=== PATIENT | female | born 1960 | race Caucasian/White ===

== ENCOUNTER → 2017-03-06 | Outpatient (CLI) | payer OTHER ==
[2017-03-06 18:51] LABS: INR 0.91
[2017-03-06 19:45] LABS: ALBUMIN 4.1 GM/DL (3.2-5.2); ALBUMIN/GLOBULIN RATIO 1.28 (1.00-1.93); ALKALINE PHOSPHATASE 237 U/L (45-117); ALT/SGPT 60 U/L (12-78); AST/SGOT 41 U/L (15-37); BILIRUBIN,DIRECT < 0.1 MG/DL (0.0-0.2); BILIRUBIN,TOTAL 0.3 MG/DL (0.2-1.0); GAMMA GLUTAMYLTRANSPEPTIDASE 258 U/L (5-55); TOTAL IRON BINDING CAPACITY 365 UG/DL (250-450); TOTAL PROTEIN 7.3 GM/DL (6.4-8.2)
[2017-03-12 00:06] LABS: SJOGREN'S ANTI SS-A <0.2 AI (0.0-0.9); SJOGREN'S ANTI SS-B <0.2 AI (0.0-0.9)
== END ==
LOC: M LAB 17:14
PROVIDERS: ATTEND Internal Medicine Gastroenterology
DX: R74.8 Abnormal levels of other serum enzymes (principal)

== ENCOUNTER → 2017-03-11 | Outpatient (CLI) | payer OTHER ==
--- NOTE | 2017-03-12 03:54 | REP ---
Clinical: Abnormal liver function tests. Technique: Lawson scale ultrasound using curved array transducer. Findings: The liver and pancreas are normal in contour, size, and echogenicity without focal hepatic or pancreatic lesions identified. The gallbladder demonstrates two mobile gallstones up to 13 mm without wall thickening or pericholecystic fluid. No biliary ductal dilatation is appreciated, and the common bile duct measures 3.3 mm diameter. The right kidney is normal in reniform shape without hydronephrosis and measures 9.2 x 5.4 x 2.6 cm. No ascites. Visualized portions of the abdominal aorta normal. Impression: Cholelithiasis without sonographic evidence for acute cholecystitis. Otherwise normal right upper quadrant abdominal ultrasound. Signed by Steven Mackenzie MD 03/12/2017 03:45 A
== END ==
LOC: M RAD 08:03
PROVIDERS: ATTEND Internal Medicine Gastroenterology
DX: R74.8 Abnormal levels of other serum enzymes (principal); K80.80 Other cholelithiasis without obstruction

== ENCOUNTER → 2017-05-23 | Outpatient (CLI) | payer OTHER ==
[~2017-05-23] MED LIST: TRAM50TA2 PO
--- NOTE | 2017-05-23 10:17 | REP ---
MAXILLOFACIAL CT WITHOUT CONTRAST: HISTORY: Chronic maxillary sinusitis. The right maxillary sinus is hypoplastic. Mucosal thickening is present in the right maxillary sinus. There is almost complete opacification of the right maxillary sinus. The perez of the maxillary sinus are thickened and sclerotic consistent with chronic sinusitis. The remaining sinuses are clear. Mucosal thickening involves the right osteomeatal unit. The left osteomeatal unit is patent. The middle and inferior nasal turbinates are partially paradoxical. There is minimal deviation of the nasal septum to the left. A small spur is present arising from the left side of the nasal septum. The cribriform plate, medial perez of the orbits and optic canals are intact. The carotid canals form a segment of the posterolateral perez of the sphenoid sinus. IMPRESSION: Sinus mucosal thickening as described above. Signed by Landen Hendrickson MD 05/23/2017 10:26 A
== END ==
LOC: M RAD 09:40
PROVIDERS: ATTEND Otolaryngology
DX: J32.0 Chronic maxillary sinusitis (principal)

== ENCOUNTER → 2017-05-30 | Outpatient (REF) | payer OTHER | LOC: M LAB REF 13:21 | PROVIDERS: ATTEND Otolaryngology | DX: J32.0 Chronic maxillary sinusitis (principal) ==

== ENCOUNTER 2017-06-27 08:21 | Day surgery (SDC) | payer OTHER ==
[~2017-06-27] VITALS: Ht 154.9 cm; Wt 49.4 kg
[~2017-06-27 08:21] MED LIST changes: +LR 1,000 ML IV ONE
[2017-06-27] MEDS ORDERED: ONDANSETRON 4MG/2ML VIAL (J2405) As Ordered ONE (08:31)
[2017-06-27] MEDS ORDERED: LIDOCAINE 2% INJ 100 MG/5 ML SDV (FOR ANES.) As Ordered ONE (08:31)
[2017-06-27] MEDS ORDERED: PROPOFOL 200 MG/20 ML VIAL As Ordered ONE (08:31)
[2017-06-27] MEDS ORDERED: dexameTHASONE 4 MG/ML 1ML VIAL (J1100) As Ordered ONE (08:31)
[2017-06-27] MEDS ORDERED: ROCURONIUM BROMIDE 50 MG/5 ML VIAL/SYRINGE As Ordered ONE (08:31)
[2017-06-27] MEDS ORDERED: fentaNYL 250 MCG/5 ML INJECTION (J3010) As Ordered ONE (08:32)
[2017-06-27] MEDS ORDERED: MIDAZOLAM INJ 2 MG/2 ML VIAL (J2250) As Ordered ONE (08:42)
[2017-06-27] MEDS ORDERED: EPINEPHrine 1MG/ML INJ 30ML MD-VIAL As Ordered ONE (10:36)
[2017-06-27] MEDS ORDERED: LIDOCAINE W/EPINEPHRINE 1% 20ML VIAL As Ordered ONE (10:36)
[2017-06-27] MEDS ORDERED: METHYLENE BLUE 0.5% (5MG/ML) 10 ML AMP (PROVAYBLUE)(Q9968 PER 1MG) As Ordered ONE (10:37)
[2017-06-27] MEDS ORDERED: OXYMETAZOLINE NASAL SPRAY (AFRIN) As Ordered ONE (10:47)
[2017-06-27] MEDS ORDERED: ePHEDrine SULFATE 25 MG/5 ML(5MG/ML) SYRINGE As Ordered ONE (11:15)
[2017-06-27] MEDS ORDERED: GLYCOPYRROLATE INJ 0.2 MG/ML 2 ML VIAL As Ordered ONE (11:25)
[2017-06-27] MEDS ORDERED: NEOSTIGMINE 10 MG/10 ML VIAL (J2710) As Ordered ONE (11:25)
[2017-06-27] MEDS ORDERED: HYDROmorphone HCL 2 MG/ML 1ML VIAL (J1170) As Ordered ONE (11:42)
[2017-06-27] MEDS ORDERED: ONDANSETRON 4MG/2ML VIAL (J2405) IV PRN (13:00)
[2017-06-27] MEDS ORDERED: fentaNYL 100 MCG/2 ML INJECTION (J3010) IV PRN (13:00)
[2017-06-27] MEDS ORDERED: PERCOCET 5MG/325MG TAB PO PRN (13:00)
[2017-06-27] MEDS ORDERED: HYDROmorphone HCL 1 MG/ML SYRINGE (J1170) IV PRN (13:00)
[2017-06-27] MEDS ORDERED: LR 1,000 ML IV SCH (13:00)
[2017-06-27 13:45] VITALS: BP 137/65
--- NOTE | 2017-06-27 21:10 | RO ---
DATE OF PROCEDURE: 06/27/2017 PREPROCEDURE DIAGNOSES: Chronic right maxillary sinusitis recalcitrant to medical therapy with previous history of Adair Giacomo many years ago and right sided sinus surgery with recurrent pain and pressure on the right side, again, unresponsive to medications. POSTPROCEDURE DIAGNOSES: Chronic right maxillary sinusitis recalcitrant to medical therapy with previous history of Adair Giacomo many years ago and right sided sinus surgery with recurrent pain and pressure on the right side, again, unresponsive to medications. OPERATIVE PROCEDURE: Endoscopic maxillary sinusotomy with a balloon [employer] device as well as copious irrigation and partial uncinectomy. SURGEON: Yuan Mitchell Jr, MD [employer] TECHNICAL OFFICER: ANESTHESIA: General via endotracheal tube DESCRIPTION OF PROCEDURE: After the patient had been counseling in the preoperative area, discussions were performed and again reiteration of the risks, benefits, pros and cons, limitations were discussed with the patient. The patient was brought into the operating room, induced and intubated by the anesthesiologist. The films were available and the national sales representative for [employer] was also available. Attention then was drawn to decongesting the nasal cavity with topical Afrin and then also injecting the base of the inferior turbinate with 25-gauge needle. Also the septum was injected on the right side. There was some septal deviation to the left, but this was not consequential and did not at this point seem to be significantly problematic for the patient. At this point, the middle turbinate was medialized and the right inferior turbinate was lateralized, then had some meatal opening. Maxillary seeker was used to identify the natural ostium. Utilizing the [employer] spin device the Sana catheter was used to cannulate the right maxillary sinus and the balloon was deployed to 10 mL and then the Sana device was retracted and 120 mL was utilized to irrigate out the right maxillary sinus. There was material compatible with peanut butterish type consistency that was irrigated out. Cultures were obtained, aerobic, anaerobic and fungal. Another 120 mL was used to suction this out. 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 The patient tolerated the procedure well. There were no problems. No complications. Estimated blood loss was approximately 15 to 20 mL. At this point, nasal port packing was trimmed and placed in the middle meatus to help with hemostasis and the patient tolerated the procedure well. The patient was taken back to the recovery room in satisfactory condition.
== END 2017-06-27 13:46 | disposition home or self-care (01) ==
LOC: M SDC 08:21
PROVIDERS: ATTEND Otolaryngology
DX: J32.0 Chronic maxillary sinusitis (principal); J45.909 Unspecified asthma, uncomplicated; D86.9 Sarcoidosis, unspecified; Z79.899 Other long term (current) drug therapy
CPT/HCPCS: 31267; 87070; 87075; 87102; 88305; J1100; J1170; J2250; J2405; J2710; J3010

== ENCOUNTER 2017-09-22 23:25 | Emergency (ER) | payer OTHER ==
[2017-09-23 01:39] LABS: INFLUENZA A AMPLIFICATION POSITIVE (NEGATIVE); INFLUENZA B AMPLIFICATION NEGATIVE (NEGATIVE)
[2017-09-23] MEDS: OSELTAMIVIR PHOSPHATE 75 MG CAP (TAMIFLU) PO (01:48)
== END 2017-09-23 01:49 | disposition home or self-care (01) ==
LOC: M ED 23:25
DX: J09.X2 Influenza due to identified novel influenza A virus with other respiratory manifestations (principal); M54.9 Dorsalgia, unspecified; G89.29 Other chronic pain; Z88.5 Allergy status to narcotic agent
CPT/HCPCS: 71046

== ENCOUNTER → 2018-10-30 | Outpatient (REF) | payer OTHER ==
[~2018-10-30] MED LIST changes: -LR 1,000 ML IV ONE; +OSEL75CA PO
== END ==
LOC: M LAB REF 10-29 09:52
PROVIDERS: ATTEND Physician Assistant
DX: N39.0 Urinary tract infection, site not specified (principal)

== ENCOUNTER → 2019-01-12 | Outpatient (REF) | payer OTHER | LOC: M LAB REF 19:38 | PROVIDERS: ATTEND Physician Assistant | DX: R30.0 Dysuria (principal) ==

== ENCOUNTER → 2020-05-11 | Outpatient (REF) | payer OTHER | LOC: M LAB REF 15:52 | PROVIDERS: ATTEND Physician Assistant | DX: R30.0 Dysuria (principal) ==

== ENCOUNTER → 2020-07-06 | Outpatient (REF) | payer OTHER ==
[2020-07-06 12:39] LABS: BASO # 0.1 10^3/uL (0.0-0.2); EOS # 0.1 10^3/uL (0.0-0.5); EOS % 1.9 % (0.0-3.0); HEMATOCRIT 44.6 % (36.0-47.0); HEMOGLOBIN 14.1 g/dl (12.0-15.5); LYMPH # 2.3 10^3/uL (1.5-5.0); LYMPH % 33.7 % (24.0-44.0); MEAN CORPUSCULAR HEMOGLOBIN 30.9 pg (27.0-33.0); MEAN CORPUSCULAR HGB CONC 31.6 g/dl (32.0-36.5); MEAN CORPUSCULAR VOLUME 97.6 fl (80.0-96.0); MONO # 0.6 10^3/uL (0.0-0.8); MONO % 8.3 % (0.0-5.0); NEUTROPHILS # 3.7 10^3/uL (1.5-8.5); NEUTROPHILS % 54.8 % (36.0-66.0); PLATELET COUNT, AUTOMATED 315 10^3/uL (150-450); RED BLOOD COUNT 4.57 10^6/uL (4.00-5.40); WHITE BLOOD COUNT 6.8 10^3/uL (4.0-10.0)
[2020-07-06 13:13] LABS: ALBUMIN 4.2 GM/DL (3.2-5.2); ALT/SGPT 63 U/L (12-78); BILIRUBIN,TOTAL 0.5 MG/DL (0.2-1.0); BLOOD UREA NITROGEN 17 MG/DL (7-18); CALCIUM LEVEL 9.7 MG/DL (8.5-10.1); CARBON DIOXIDE LEVEL 30 MEQ/L (21-32); CHLORIDE LEVEL 105 MEQ/L (98-107); COMPLEMENT C3 125 MG/DL (90-180); COMPLEMENT C4 34 MG/DL (10-40); CPK CREATINE PHOSPHOKINASE 69 U/L (26-192); CREATININE FOR GFR 0.84 MG/DL (0.55-1.30); FOLATE 14.5 NG/ML; FREE T4 1.03 NG/DL (0.76-1.46); GLOMERULAR FILTRATION RATE > 60.0 (>51); GLUCOSE, FASTING 79 MG/DL (70-100); POTASSIUM SERUM 3.9 MEQ/L (3.5-5.1); RHEUMATOID FACTOR QUANT < 10.0 IU/ML (<15.0); SODIUM LEVEL 140 MEQ/L (136-145); THYROID PEROXIDASE ANTIBODY 31.9 U/ML (<60.0); TOTAL 25(OH) VITAMIN D 23.1 NG/ML (30.0-100.0); TOTAL PROTEIN 7.6 GM/DL (6.4-8.2); VITAMIN B12 LEVEL 331 PG/ML
[2020-07-06 13:16] LABS: ERYTHROCYTE SEDIMENTATION RATE 8 mm/hr (0-30)
[2020-07-06 13:28] LABS: TOTAL PROTEIN,RANDOM URINE 7.1 MG/DL (0.0-12.0)
[2020-07-11 14:07] LABS: ANA (HEP2) Negative (.); ANGIOTENSIN 1 CONVERTING ENZYM 36 U/L (14-82); ANTI DS-DNA AB Negative (Negative); RNP ANTIBODY 1.3 AI (0.0-0.9); SMITHS ANTIBODY < 0.2 AI (0.0-0.9); SSA SJOGRENS A <0.2 AI (0.0-0.9); SSB SJOGRENS B <0.2 AI (0.0-0.9)
== END ==
LOC: M SFHCRHEU 09:32
PROVIDERS: ATTEND Internal Medicine
DX: R76.8 Other specified abnormal immunological findings in serum (principal); D86.9 Sarcoidosis, unspecified; M79.7 Fibromyalgia; R53.82 Chronic fatigue, unspecified